=== PATIENT | female | born 1945 | race Caucasian/White ===

== ENCOUNTER 2018-09-26 21:19 | Emergency (ER) | payer MEDICARE ==
[~2018-09-26] VITALS: Ht 157.5 cm; Wt 56.7 kg
--- NOTE | 2018-09-26 21:31 | NUR ---
ED Nurse Note: PATIENT AMBULATED TO ED C/O MECHANICAL FALL X 1920. PT PRESENT WITH LACERATION ON ABOVE LEFT EYEBROWS. DENIES LOC. Pt is AO x 4times, VSS, on room air no distress. ERMD seen Pt at bedside.
--- NOTE | 2018-09-26 21:32 | Emergency Room Report ---
History of Present Illness General Chief Complaint: Multiple Trauma/Fall Source: Patient Present Illness HPI This is 73-year-old female with no past medical history. She presents with a fall with a laceration over the left eyebrow area. Onset about a couple hours ago. She states she is been drinking a lot today. She says she drinks because she wants to get drunk. He was walking to the bathroom and tripped and fell. No loss of consciousness. Minimal pain. No nausea no vomiting. No fever chills but no neck pain. Allergies: Coded Allergies: No Known Allergies (Unverified , 09/26/18) Patient History Past Medical History: none, see triage record, old chart reviewed Past Surgical History: none Pertinent Family History: none Social History: Reports: alcohol use Now: No Immunizations: UTD Reviewed Nursing Documentation: PMH: Agreed; PSxH: Agreed Nursing Documentation-PMH Past Medical History: No Stated History Review of Systems Eye: Denies: eye pain, blurred vision ENT: Denies: ear pain, nose congestion, throat swelling Respiratory: Denies: cough, shortness of breath Cardiovascular: Denies: chest pain, palpitations Gastrointestinal: Denies: abdominal pain, diarrhea, nausea, vomiting Musculoskeletal: Denies: back pain, joint pain Skin: Denies: rash Neurological: Denies: headache, numbness Endocrine: Denies: increased thirst, increased urine Hematologic/Lymphatic: Denies: easy bruising All Other Systems: negative except mentioned in HPI Physical Exam Vital Signs Date Time Temp Pulse Resp B/P (MAP) Pulse Ox O2 Delivery O2 Flow Rate FiO2 09/26/18 21:23 97.5 69 22 159/82 (107) 97 Room Air Vitals with high blood pressure Sp02 EP Interpretation: reviewed, normal General Appearance: well appearing, no apparent distress, alert Head: normocephalic, other - Left eyebrow with 2 cm oblique laceration laterally. No foreign body. Eyes: bilateral eye PERRL, bilateral eye EOMI ENT: hearing grossly normal, normal pharynx Neck: full range of motion, supple, no meningismus Respiratory: chest non-tender, lungs clear, normal breath sounds Cardiovascular #1: regular rate, rhythm, no murmur Gastrointestinal: normal bowel sounds, non tender, no mass, no organomegaly, no bruit, non-distended Musculoskeletal: back normal, gait/station normal, normal range of motion Psychiatric: mood/affect normal Procedures Laceration/Wound Repair Laceration/Wound Repair : Consent: Verbal Wound Location: face Wound's Depth, Shape: linear Wound Length (cm): 2 Wound Explored: clean Irrigated w/ Saline (ccs): 500 Betadine Prep?: Yes Anesthesia: 1% Lidocaine Volume Anesthetic (ccs): 2 Wound Repaired With: sutures Suture Size/Type: 4:0, other - Chromic Number of Sutures: 4 Patient Tolerated: Well Complications: None Medical Decision Making Diagnostic Impression: Primary Impression: Head injury, acute Qualified Codes: S09.90XA - Unspecified injury of head, initial encounter Additional Impression: Laceration of eyebrow, left Qualified Codes: S01.112A - Laceration without foreign body of left eyelid and periocular area, initial encounter ER Course Patient with a fall in the left eyebrow laceration. She not on anticoagulation. No evidence of scalp injury. Will discharge home. Last Vital Signs Date Time Temp Pulse Resp B/P (MAP) Pulse Ox O2 Delivery O2 Flow Rate FiO2 09/26/18 21:23 97.5 69 22 159/82 (107) 97 Room Air Status: improved Disposition: HOME, SELF-CARE Condition: Stable Scripts Ibuprofen* (MOTRIN*) 600 Mg Tablet 600 MG ORAL THREE TIMES A DAY, #30 TAB 0 Refills Prov: Mathew Hoffman MD 09/26/18 Additional Instructions: Follow up your doctor in 7 days. Suture will fall off. Return if worse. Mathew Hoffman MD Sep 26, 2018 21:32
[2018-09-26 21:35] VITALS: BP 138/82
--- NOTE | 2018-09-26 21:40 | NUR ---
ED Nurse Note: Topical antibiotic applied on suture wound.
[2018-09-26] MEDS ORDERED: Bacitracin Oint UD TOPIC ONE (21:45)
[2018-09-26] MEDS ORDERED: IBUPROFEN600 MG ORAL (21:46)
[2018-09-26 21:55] VITALS: BP 138/82
--- NOTE | 2018-09-26 21:55 | NUR ---
ER DISCHARGE NOTE: Patient is cleared to be discharged per ERMD, pt is aox4, on room air, with stable vital signs. pt was given dc and prescription instructions, pt was able to verbalize understanding, pt id band removed without complications. pt is able to ambulate with steady gait with daughter. pt took all belongings.
== END 2018-09-26 22:00 | disposition home or self-care (01) ==
LOC: EMR 21:40
DX: S01.112A Laceration without foreign body of left eyelid and periocular area, initial encounter (principal); S09.90XA Unspecified injury of head, initial encounter; W01.0XXA Fall on same level from slipping, tripping and stumbling without subsequent striking against object, initial encounter; Y92.9 Unspecified place or not applicable
CPT/HCPCS: 99282